=== PATIENT | male | born 1995 | race Caucasian/White ===

== ENCOUNTER 2018-01-20 19:48 | Emergency (ER) | payer BC ==
[~2018-01-20] VITALS: Ht 188 cm; Wt 77.3 kg
[~2018-01-20 19:48] MED LIST: ADDERALL20 MG PO
[2018-01-20 19:52] VITALS: BP 119/58; TEMP 98.4
[2018-01-20 20:45] VITALS: PULSE 72
== END 2018-01-20 20:45 | disposition home or self-care (01) ==
LOC: COL.ER 19:48
DX: S61.210A Laceration without foreign body of right index finger without damage to nail, initial encounter (principal); W01.198A Fall on same level from slipping, tripping and stumbling with subsequent striking against other object, initial encounter; Y92.009 Unspecified place in unspecified non-institutional (private) residence as the place of occurrence of the external cause